=== PATIENT | male | born 1955 | race Caucasian/White ===

== ENCOUNTER 2025-05-01 09:43 | Outpatient (REF) | payer OTHER, SELFPAY ==
--- NOTE | 2025-05-01 | EMG_ITS ---
Right median and ulnar motor and sensory studies were performed right radial sensory and median and lateral antecubital brachial sensory studies were performed and EMG needle examination was performed. Impression: This is an unremarkable study with no evidence of entrapment neuropathy or a proximal lesion MTDD
--- OUTSIDE RECORDS SUMMARY | 2025-05-01 10:25 | XMS_ITS | Clinical Summary ---
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 Active loratadine (CLARITIN) 10 mg tablet Take 1 tablet (10 mg total) by mouth. Active amLODIPine (NORVASC) 2.5 mg tablet Take 1 tablet (2.5 mg total) by mouth 1 (one) time each day. 90 tablet 1 01/22/2025 Active atorvastatin (LIPITOR) 20 mg tablet Take 1 tablet (20 mg total) by mouth 1 (one) time each day. 90 tablet 1 01/22/2025 Active folic acid (FOLVITE) 1 mg tablet Take 1 tablet (1 mg total) by mouth 1 (one) time each day. 90 tablet 1 01/22/2025 Active losartan (COZAAR) 50 mg tablet Take 1 tablet (50 mg total) by mouth 1 (one) time each day. 90 tablet 1 01/22/2025 Active thiamine 100 mg tablet Take 1 tablet (100 mg total) by mouth 1 (one) time each day. 90 tablet 1 01/22/2025 Active Active Problems Problem Noted Date Diagnosed Date Cervical spondylosis 03/25/2025 Assessment & Plan (03/25/2025 3:33 PM EDT): I reviewed the MRI findings in detail with Mr. Zheng using a spine model. His chronic neck pain is probably from the degenerative disc disease at C5-6 and C6- 7 however, I am not as confident about the numbness in the 3 digits of his right hand. There is definitely significant foraminal stenosis at those 2 levels on the LEFT side but much less so on the right which is where he is symptomatic. The development of this coincided with his right shoulder pain though the shoulder pain itself completely resolved with the triamcinolone injection and he feels he has full range of movement. He did not attend physical therapy for shoulder because the pain and poor mobility resolved. I am going to request a right upper extremity EMG to see if this confirms radiculopathy as I would not be confident offering him cervical surgery with the findings on the opposite side of his symptoms. Gouty arthritis 07/26/2024 Alcoholic liver disease (CMS/HCC V24) 02/05/2024 Leukopenia 02/05/2024 Macrocytosis 02/05/2024 Chronic bilateral low back pain without sciatica 02/05/2024 Primary hypertension 08/02/2011 Hyperlipidemia 11/24/2006 Encounters Date Type Department Care Team Description 03/26/2025 Telephone Neurosurgery [facility] [address] [address] Hayley Caal [place] Appointment (Called to [facility] regarding Pt Insurance. Pt Insurance is accepted. Faxed Order for EMG asking to pls notify this dept with Date and Time of Appt. /Pt is scheduled for , 05/01/[address] Granados. ) 03/25/2025 3:00 PM EDT Consult Neurosurgery [facility] 175 [facility] [address] [place] [address] Klaudia Faust MD Cervical spondylosis (Primary Dx); Radiculopathy affecting upper extremity 03/25/2025 Telephone Orthopedic Surgery [facility] [address] [address] Minesh Friedman MD 03/07/2025 2:41 PM EDT - 03/07/2025 11:59 PM EDT Hospital Encounter [facility] MRI [address] [place] [address] Radiculopathy affecting upper extremity Discharge Disposition: Home or Self Care 03/03/2025 2:45 PM EDT Office Visit Orthopedic Surgery - [facility] 250 175 [facility] [address] [place] [address] Minesh Friedman MD Radiculopathy affecting upper extremity (Primary Dx); Rotator cuff arthropathy of right shoulder; Carpal tunnel syndrome of right wrist; Calcific tendinitis of right shoulder from Last 3 Months Immunizations Name Administration Dates Next Due Hepatitis A Pediatric (Havri x; Vaqta) 12mo to less than 19yo 11/13/1999,01/27/1999 Influenza Quadravalent, MDCK , 0.5ml, preservative free (Flucelvax) 6mo and older 07/16/2021 Influenza trivalent, 0.5mL ( Fluad) 65yo and older 06/05/2023 Influenza trivalent, 0.5mL, preservative free (Fluarix; FluLaval; Fluzone) ages 6mo and older (Afluria) 3 years and older 09/28/2002,08/18/2001,08/24/2000,07/25,06/04/1998,07/19/1997 MMR, measles mumps and rubel la Live (Priorix; M-M-R II) 12mo and older 01/27/1999 Meningococcal Polysaccharide 01/27/1999 Moderna SARS-CoV-2 COVID-19, mRNA, LNP-S, preservative free 01/01/2021,12/04/2020 OPV 11/16/1976 PPD Test 09/28/2002, 1,05/27/2000,02/04,01/27/1999 Pneumococcal conjugate 20 va lent (Prevnar 20, PCV 20) 2mo and older 03/16/2023 Td Tetanus diptheria (Tdvax) 7yo and older 02/17/2001,02/16/1991 Tdap Tetanus diptheria acell ular pertussis (Boostrix; Adacel) 7yo and older 07/16/2021,08/02/2011 Typhoid VICPS (Typhim Vi) 2y o and older 07/25/1998,11/16/1994 Zoster Live 07/24/2018 Surgical History Surgery Date Site/Laterality Comments TONSILLECTOMY PROCEDURE: HISTORICAL TONSILLECTOMY OTHER SURGICAL HISTORY PROCEDURE: IL OPEN TX CLAVICULAR FRACTURE INTERNAL FIXATION; COMMENT: x's 3 OTHER SURGICAL HISTORY PROCEDURE: OPEN RED SIMPL MANDIBLE FX OTHER SURGICAL HISTORY PROCEDURE: IL OPEN TX TRANS-SCAPHOPERILUNAR FRACTURE DISLC COLONOSCOPY 02/20/09 PROCEDURE: HISTORICAL COLONOSCOPY; COMMENT: adenomas and diverticulosis and hemorrhoids; repeat in three years COLONOSCOPY W/ POLYPECTOMY 07/20/2012 PROCEDURE: IL COLSC FLX W/RMVL OF TUMOR POLYP LESION SNARE TQ; COMMENT: adenoma; repeat in 5 yrs COLONOSCOPY W/ POLYPECTOMY 09/20/2016 PROCEDURE: IL COLSC FLX W/RMVL OF TUMOR POLYP LESION SNARE TQ; COMMENT: adenomas and hemorrhoids; repeat in 5 yrs Medical History Medical History Date Comments Unspecified chronic bronchit is (CMS/HCC V24, CMS/HCC V28) DX:Unspecified chronic bron chitis ([facility]); COMMENT: flares up at times Other and unspecified hyperlipidemia 11/24/2006 DX:Other and unspecified hyperlipidemia Gouty arthritis DX:Gouty arthrit is Family History Medical History Relation Name Comments Other: deaf Father 2017 Heart attack Maternal Grandfather Stroke Maternal Grandmother Mental illness Mother alzheimers Stroke Mother Other: parkinsons Paternal Grandmother Other: respiratory problems Sister 1 Relation Name Status Comments Father Maternal Grandfather Maternal Grandmother Mother (Age 76) Paternal Grandfather Paternal Grandmother Sister 1 Sister 2 Alive Sister 3 Alive Social History Tobacco Use Types Packs/Day Years Used Date Smoking Tobacco: Never Smokeless Tobacco: Never Tobacco Cessation:Counseling Given: Not Answered Alcohol Use Standard Drinks/Week Comments Not Currently 0 (1 standard drink = 0.6 oz pur e alcohol) Sex and Gender Information Value Date Recorded Sex Assigned at Not on file Legal Sex Male 12:41 PM EST Gender Identity Not on file Sexual Orientation Not on file Obstetrics History Last Filed Vital Signs Vital Sign Reading Time Taken Comments Blood Pressure 126/80 01/22/2025 8:38 AM EDT Pulse 82 01/22/2025 8:38 AM EDT Temperature 36.3 C (97.3 F) 01/22/2025 8:38 AM EDT Respiratory Rate 20 01/22/2025 8:38 AM EDT Oxygen Saturation - - Inhaled Oxygen Concentration - - Weight 86.2 kg (190 lb) 03/25/2025 2:51 PM EDT Height 172.7 cm (5' 8 ) 03/25/2025 2:51 PM EDT Body Mass Index 28.89 03/25/2025 2:51 PM EDT Plan of Treatment Health Maintenance Due Date Last Done Comments Hepatitis A Vaccines (1 of 2 - Risk 2-dose series) 1974 11/13/1999, 01/27/1999 IPV Vaccines (2 of 3 - Adult catch-up series) 12/14/1976 11/16/1976 Hepatitis B Vaccines (1 of 3 - Risk 3-dose series) 2017 RSV Immunization Adult Patients (1 - Risk 60-74 years 1-dose series) 2017 Zoster Vaccines (2 of 3) 09/18/2018 07/24/2018 Hepatitis C Screening 08/27/2022 Social Influencers of Health Screening 08/27/2022 Falls Risk Assessment 2022 COVID-19 Vaccine ( season) 2024 01/01/2021, 12/04/2020 Depression Screening 09/18/2024 Influenza Vaccine (#1) 2025 , 06/05/2023, 07/04/2022, Additional history exists Hypertension/CHF/CAD Annual BMP Blood Test 01/22/2026 01/22/2025, 02/05/2024, 02/05/2024 Colorectal Cancer Screening: Colonoscopy 01/30/2029 01/31/2024 Cholesterol Screening (Lipid Panel) 01/22/2030 01/22/2025, 02/05/2024, 02/05/2024 DTaP,Tdap,and Td Vaccines (5 - Td or Tdap) 07/16/2031 07/16/2021, 08/02/2011, 02/17/2001, Additional history exists MMR Vaccines Aged Out 01/27/1999 No longer eligi ble based on patient's age to complete this topic Meningococcal ACWY Vaccine Aged Out 01/27/1999 N o longer eligible based on patient's age to complete this topic Pneumococcal Vaccine: 50+ Years Completed 03/16/2023 HIB Vaccines Aged Out No longer eligi ble based on patient's age to complete this topic HPV Vaccines Aged Out No longer eligi ble based on patient's age to complete this topic Meningococcal B Vaccine Aged Out No l onger eligible based on patient's age to complete this topic RSV Immunization Patients Under 20 months Aged Out No longer eligible based on patient's age to complete this topic Varicella Vaccines Aged Out No longer eligible based on patient's age to complete this topic Procedures Procedure Name Priority Date/Time Associated Diagnosis Comments MR CERVICAL SPINE WO CONTRAST Routine 03/07/2025 3:47 PM EDT Radiculopathy affecting upper extremity IL ARTHROCENTESIS/ASPIRAT ION/INJECTION MAJOR JOINT/BURSA W/O U/S GUIDANCE Routine 03/03/2025 2:45 PM EDT Calcific tendinitis of right shoulder COMPREHENSIVE METABOLIC PANEL Routine 01/22/2025 9:42 AM EDT Primary hypertension Mixed hyperlipidemia Macrocytosis Chronic bilateral low back pain without sciatica Alcoholic liver disease (CMS/HCC V24) Chronic gout involving toe without tophus, unspecified cause, unspecified laterality Screening for diabetes mellitus (DM) LIPID PANEL WITH REFLEX TO DIRECT LDL Routine 01/22/2025 9:42 AM EDT Primary hypertension Mixed hyperlipidemia Macrocytosis Chronic bilateral low back pain without sciatica Alcoholic liver disease (CMS/HCC V24) Chronic gout involving toe without tophus, unspecified cause, unspecified laterality Screening for diabetes mellitus (DM) from Last 3 Months or Most Recently Relevant to Health Maintenance Results * MR Cervical Spine wo Contrast (03/07/2025 3:47 PM EDT) Anatomical Region Laterality Modality C-spine, Spine Magnetic Resonan ce 03/10/2025 4:18 PM EDT Impressions 03/10/2025 5:28 PM EDT Degenerative changes throughout the cervical spine without high-grade spinal canal stenosis, mass effect upon the cord, or cord signal abnormality. Foraminal stenosis at several levels, most pronounced on the left at C3-4 and C5-6. -------- FINAL REPORT -------- Dictated By: COURT BAY Dictated Date: 03/10/2025 16:18 ET Assigned Physician: COURT BAY Reviewed and Electronically Signed By: COURT BAY Signed Date: 03/10/2025 17:28 ET Workstation ID: [id number] Transcribed By: Self Edit Transcribed Date: 03/10/2025 16:18 ET Narrative 03/10/2025 5:28 PM EDT PROCEDURE: Cervical spine MRI INDICATION: Pain, radiculopathy TECHNIQUE: Multiplanar, multisequence MRI of the Cervical spine Without contrast. COMPARISON: No priors available. FINDINGS: Mild anterolisthesis at C4-5 and C7-T1 related to degenerative facet arthropathy. No fracture or suspicious marrow replacing lesion. Degenerative loss of normal disc height and signal at C5-6 and C6-7 with associated degenerative discogenic endplate change at C6-7. Degenerative fusion across the right C2-3 and C4-5 facet joints as well as across the left C3-4 facet joint. Cervical cord is normal in signal and morphology. No epidural collection or mass is seen within the spinal canal. Paraspinal muscles are normal. Foramen magnum is normal. Findings by level: C2-C3: Right greater than left facet arthropathy and uncovertebral spurring resulting in mild right and no left femoral stenosis. No spinal canal stenosis. C3-C4: Left greater than right facet arthropathy and uncovertebral spurring resulting in severe left and mild right foraminal stenosis. No spinal canal stenosis. C4-C5: Right greater than left facet arthropathy and uncovertebral spurring resulting in mild right and no left foraminal stenosis. No spinal canal stenosis. C5-C6: Posterior disc osteophyte complex with left greater than right uncovertebral spurring and facet arthropathy resulting in severe left and moderate right frontal stenosis. Mild spinal canal stenosis. C6-C7: Posterior disc osteophyte complex with left greater than right uncovertebral spurring and facet arthropathy. Moderate left and mild right foraminal stenosis. Mild spinal canal stenosis. C7-T1: No foraminal or central canal stenosis Procedure Note Court Bay MD - 06/23/2025 PROCEDURE: Cervical spine MRI INDICATION: Pain, radiculopathy TECHNIQUE: Multiplanar, multisequence MRI of the Cervical spine Withoutcontrast. COMPARISON: No priors available. FINDINGS: Mild anterolisthesis at C4-5 and C7-T1 related to degenerative facetarthropathy. No fracture or suspicious marrow replacing lesion. Degenerative loss of normal disc height and signal at C5-6 and C6-7 withassociated degenerative discogenic endplate change at C6-7. Degenerative fusion across the right C2-3 and C4-5 facet joints as well asacross the left C3-4 facet joint. Cervical cord is normal in signal and morphology. No epidural collectionor mass is seen within the spinal canal. Paraspinal muscles are normal. Foramen magnum is normal. Findings by level: C2-C3: Right greater than left facet arthropathy and uncovertebralspurring resulting in mild right and no left femoral stenosis. No spinalcanal stenosis. C3-C4: Left greater than right facet arthropathy and uncovertebralspurring resulting in severe left and mild right foraminal stenosis. Nospinal canal stenosis. C4-C5: Right greater than left facet arthropathy and uncovertebralspurring resulting in mild right and no left foraminal stenosis. Nospinal canal stenosis. C5-C6: Posterior disc osteophyte complex with left greater than rightuncovertebral spurring and facet arthropathy resulting in severe left andmoderate right frontal stenosis. Mild spinal canal stenosis. C6-C7: Posterior disc osteophyte complex with left greater than rightuncovertebral spurring and facet arthropathy. Moderate left and mildright foraminal stenosis. Mild spinal canal stenosis. C7-T1: No foraminal or central canal stenosis IMPRESSION: Degenerative changes throughout the cervical spine without high-gradespinal canal stenosis, mass effect upon the cord, or cord signalabnormality. Foraminal stenosis at several levels, most pronounced on the left at C3-4and C5- 6. -------- FINAL REPORT -------- Dictated By: COURT BAY Dictated Date: 03/10/2025 16:18 ET Assigned Physician: COURT BAY Reviewed and Electronically Signed By: COURT BAY Signed Date: 03/10/2025 17:28 ET Workstation ID: [id number] Transcribed By: Self Edit Transcribed Date: 03/10/2025 16:18 ET Minesh Friedman MD IMG MRI PROCEDURES Final Result * IL ARTHROCENTESIS/ASPIRATION/INJECTION MAJOR JOINT/BURSA W/O U/S GUIDANCE (03/03/2025 2:45 PM EDT) Minesh Arrington MD - 03/03/2025 2:45 PM EDT Minesh Friedman MD 03/03/2025 3:08 PM L Inj/Asp: R subacromial bursa Indications: pain Details: 22 G needle, posterior approach Medications: 40 mg triamcinolone acetonide 40 mg/mL Site was prepped in standard fashion using alcohol swab, sterile technique was used to perform the injection, the patient tolerated the procedure well and a band-aid dressing was applied Informed Consent: Site: Right subacromial Laterality: Right Relevant images/test results available and reviewed: yes Health status cleared: Yes Procedure/treatment, purpose, treatment alternatives, risks/potential complications and benefits explained: yes Risk/complications/benefits details: Risk/complications/benefits details: Risks and benefits of corticosteroid injection were discussed, including risk of pain, bleeding, infection, tissue attenuation, tendon rupture, changes in skin color, and injury to surrounding structures such as arteries, veins and nerves. We also discussed the patient may develop worsening pain for a few days before having improvement in their symptoms. Patient questions answered: yes Patient agrees, verbalizes understanding, and wants to proceed: yes Consent given by: Patient Informed consent discussion completed by Physician/MAGNUS with patient: Verbal Pre-procedure timeout performed: yes Minesh Friedman MD IN CLINIC/BEDSIDE ORDERABLES Fin al Result * (ABNORMAL) Lipid panel with reflex to direct LDL (01/22/2025 9:42 AM EDT) Cholesterol 207(H) 0 - 200 mg/dL LAB CHEMISTRY METHOD 01/22/2025 1:[address] [facility] Triglycerides 187(H) 0 - 150 mg/dL LAB CHEMISTRY METHOD 01/22/2025 1:[address] [facility] HDL 75 >=40 mg/dL LAB CHEMISTRY METHOD 01/22/2025 1:[address] [facility] LDL Calculated 95 0 - 100 mg/dL LAB CHEMISTRY METHOD 01/22/2025 1:[address] [facility] VLDL Cholesterol Guy 37.4 mg/dL LAB CHEMISTRY METHOD 01/22/2025 1:[address] [facility] Non HDL Chol. (LDL+VLDL) 132 <145 mg/dL LAB CHEMISTRY METHOD 01/22/2025 1:[address] [facility] Chol/HDL Ratio 2.8 0.0 - 4.4 LAB CHEMISTRY METHOD 01/22/2025 1:22 PM [facility] Blood Venous blood specimen / Unknown Venipuncture / Unknown 01/22/2025 9:42 AM EDT 01/22/2025 9:42 AM EDT Jermain Anderson MD LAB BLOOD ORDERABLES Final Result [facility] [address] [place] [address], [place] [phone] * (ABNORMAL) Comprehensive metabolic panel (01/22/2025 9:42 AM EDT) Sodium 136 133 - 145 mmol/L LAB CHEMISTRY METHOD 01/22/2025 1:22 PM [facility] Potassium 4.7 3.5 - 5.5 mmol/L LAB CHEMISTRY METHOD 01/22/2025 1:22 PM [facility] Chloride 104 96 - 110 mmol/L LAB CHEMISTRY METHOD 01/22/2025 1:22 PM [facility] CO2 27 21 - 32 mmol/L LAB CHEMISTRY METHOD 01/22/2025 1:22 PM [facility] Anion Gap 5 3 - 11 LAB CHEMISTRY METHOD 01/22/2025 1:22 PM [facility] Glucose 114(H) 70 - 100 mg/dL LAB CHEMISTRY METHOD 01/22/2025 1:22 PM [facility] BUN 17 5 - 25 mg/dL LAB CHEMISTRY METHOD 01/22/2025 1:22 PM [facility] Creatinine 1.10 0.70 - 1.30 mg/dL LAB CHEMISTRY METHOD 01/22/2025 1:22 PM [facility] eGFR 74 >=60 mL/min/1. 73m2 LAB CHEMISTRY METHOD 01/22/2025 1:22 PM [facility] Comment:Calculation based on the Chronic Kidney Disease Epidemiology Collaboration (CKD-EPI) equation refit without adjustment for race. BUN/Creatinine Ratio 15.5 LAB CHEMISTRY METHOD 01/22/2025 1:22 PM [facility] Calcium 9.7 8.5 - 10.5 mg/dL LAB CHEMISTRY METHOD 01/22/2025 1:22 PM [facility] AST (SGOT) 22 10 - 42 unit/L LAB CHEMISTRY METHOD 01/22/2025 1:22 PM [facility] ALT (SGPT) 43 10 - 60 unit/L LAB CHEMISTRY METHOD 01/22/2025 1:22 PM [facility] Alkaline Phosphatase 66 42 - 121 unit/L LAB CHEMISTRY METHOD 01/22/2025 1:22 PM [facility] Total Protein 6.9 6.0 - 8.0 g/dL LAB CHEMISTRY METHOD 01/22/2025 1:22 PM [facility] Albumin 3.6 3.2 - 5.0 g/dL LAB CHEMISTRY METHOD 01/22/2025 1:22 PM [facility] Total Bilirubin 0.5 0.0 - 1.4 mg/dL LAB CHEMISTRY METHOD 01/22/2025 1:22 PM [facility] Blood Venous blood specimen / Unknown Venipuncture / Unknown 01/22/2025 9:42 AM EDT 01/22/2025 9:42 AM EDT us Jermain Anderson MD LAB BLOOD ORDERABLES Final Result [facility] [address] [place] [address], [place] [phone] from Last 3 Months or Most Recently Relevant to Health Maintenance Insurance [facility] [employer] COMMERCIAL GENERIC COMMERCIAL GENERIC Care Teams Road Equipment Operator Relationship Specialty Start Date End Date Jermain Anderson MD [address] [place] [address] PCP - General Internal Medicine 02/15/22
== END 2025-05-01 09:44 | disposition home or self-care (01) ==
LOC: HO.NEURO 09:43
PROVIDERS: PCP Internal Medicine; Referring Provider Neurological Surgery; Visit Provider Psychiatry & Neurology Neurology
DX: M47.812 Spondylosis without myelopathy or radiculopathy, cervical region (principal); N20.0 Calculus of kidney
CPT/HCPCS: 95886; 95911

== ENCOUNTER → 2025-05-01 09:54 | Outpatient (BNV) | payer OTHER, SELFPAY | PROVIDERS: PCP Internal Medicine; Referring Provider Neurological Surgery; Visit Provider Psychiatry & Neurology Neurology | DX: R20.2 Paresthesia of skin (principal) | CPT/HCPCS: 95886; 95911 ==